=== PATIENT | female | born 1945 | race Caucasian/White ===

== ENCOUNTER → 2017-01-06 | Outpatient (CLI) | payer OTHER | LOC: FIMAGING 08:08 | PROVIDERS: ATTEND Family Medicine ==

== ENCOUNTER 2018-04-05 17:10 | Emergency (ER) | payer OTHER ==
[2018-04-05] MEDS ORDERED: NS 1,000 ML IV ONE (18:20)
--- NOTE | 2018-04-05 18:20 | EDPHY ---
H & P Stated Complaint: Right flank pain for 3 days. Time Seen by Provider: 04/05/18 18:10 HPI/ROS: HPI: This is a 72-year-old female who presents with Chief Complaint: Right flank pain x3 days Location: Right flank Quality: Pain Duration: 3 days Signs and Symptoms: no fever, no nausea, no vomiting, no hematemesis, no blood in stool, no abdominal bloating, no diarrhea, no back pain, no urinary symptoms , no vaginal bleeding/discharge, no indigestion, no chest pain, no shortness of breath Timing: Acute, constant Severity: Mild Context: Patient presents with 3 day history of lower right flank pain that has not moved and nothing makes better or worse. She is described as mild-to- moderate in nature and constant. Patient reports that she is eating and drinking normally and has no fever, nausea, vomiting, back pain, urinary symptoms, diarrhea. Patient has a history of diverticulitis, irritable bowel syndrome. She is followed by GI the [facility]. She recently completed 7 day course of antibiotic am oxacillin as well as Tylenol and ibuprofen approximately 1 week ago. Patient reports her last bowel movement was yesterday. Modifying Factors: See above Comment: ROS: A comprehensive 10 system review of systems is otherwise negative aside from elements mentioned in the history of present illness. MEDICAL/SURGICAL/SOCIAL HISTORY: Medical history: Tooth abc - Mar 2018. Diverticulitis. IBS. Surgical history: Hysterectomy Social history: Nonsmoker. Family history noncontributory. CONSTITUTIONAL: Well-developed, well-nourished, overweight white female, awake and alert, no obvious distress HEENT: Atraumatic and normocephalic, PERRL, EOMI. Nares patent; no rhinorrhea; no nasal mucosal edema. Tympanic membranes clear. Oropharynx clear, no exudate and moist pink mucosa. Airway patent. No lymphadenopathy. No meningismus. Cardiovascular: Normal S1/S2, regular rate, regular rhythm, without murmur rub or gallop. PULMONARY/CHEST: Symmetrical and nontender. Clear to auscultation bilaterally. Good air movement. No accessory muscle usage. ABDOMEN: Soft, nondistended, mild right flank tenderness, no rebound, no guarding, no peritoneal signs, no masses or organomegaly. No CVAT. Bowel sounds heard x4 quadrants. EXTREMITIES: 2/2 pulses, strength 5/5, no deformities, no clubbing, no cyanosis or edema. NEUROLOGICAL: no focal neuro deficits. GCS 15. SKIN: Warm and dry, no erythema. no rash. Good capillary refill. Source: Patient Exam Limitations: No limitations - Personal History Current Tetanus Diphtheria and Acellular Pertussis (TDAP): Yes - Medical/Surgical History Hx Asthma: No Hx Chronic Respiratory Disease: No Hx Diabetes: No Hx Cardiac Disease: No Hx Renal Disease: No Hx Cirrhosis: No Hx Alcoholism: No Hx HIV/AIDS: No Hx Splenectomy or Spleen Trauma: No Other PMH: Tooth abcess - Mar 2018. Diverticulitis. IBS. Hysterectomy - Social History Smoking Status: Never smoked Constitutional: Initial Vital Signs Temperature (C) 36.6 C 04/05/18 17:13 Heart Rate 76 04/05/18 17:13 Respiratory Rate 16 04/05/18 17:13 Blood Pressure 127/72 H 04/05/18 17:13 O2 Sat (%) 96 04/05/18 17:13 O2 Delivery Mode Room Air Allergies/Adverse Reactions: procaine [From Novocain] Allergy (Verified 04/05/18 17:21) Home Medications: Medication Instructions Recorded Ciprofloxacin [Cipro] 500 mg PO BID #14 tab 04/05/18 Claritin 04/05/18 Nexium 04/05/18 metroNIDAZOLE [Flagyl 500 mg (*)] 500 mg PO TID #21 tab 04/05/18 Medical Decision Making - Diagnostics Imaging Results: Imaging Impressions Abdomen CT 04/05/18 18:21 Impression: 1. Mild sigmoid diverticulitis, without evidence of perforation or abscess. Please ensure the patient is current with colonoscopy screening. 2. Moderate stool in the proximal colon, with chronic mild prominence of the cecum, without evidence of obstruction. 3. Stable mildly prominent left perinephric node, with interval stability consistent with a benign etiology. 4. Additional findings, as above. Findings discussed with India Wyman 04/05/2018 at 2016. E:NW/amm ED Course/Re-evaluation: Vital signs reviewed and stable upon arrival. No systemic signs. IV access, laboratory studies, urinalysis, CT abdomen and pelvis scan ordered 1849: Urinalysis negative 1851: Labs reviewed. Mild leukocytosis without left shift. No signs of anemia/ platelet dysfunction/SHARAD/elevated LFTs/electrolyte imbalance/pancreatitis. 2030: Called by radiologist who advised that CT abdomen and pelvis scan shows mild very early diverticulitis on the left side but no perforation or abscess. And moderate constipation on the right side. Patient eating and drinking without difficulty. Given magnesium citrate, MiraLax daily p.r.n. And Cipro and Flagyl. Already is followed by [facility]. This patient was seen under the supervision of my secondary supervising physician. I evaluated care for this patient independently. Discussed this patient with Dr. Rahman who did not see the patient. Differential Diagnosis: Flank pain including but not limited to musculoskeletal causes, kidney stone, pyelonephritis, shingles, and intra-abdominal causes such as diverticulitis and appendicitis. - Data Points Laboratory Results: Laboratory Results 04/05/18 18:30 04/05/18 18:30 04/05/18 04/05/18 04/05/18 18:30 18:30 17:30 WBC 11.47 10^3/uL H 10^3/uL (3.80-9.50) RBC 4.35 10^6/uL 10^6/uL (4.18-5.33) Hgb 13.6 g/dL g/dL (12.6-16.3) Hct 40.1 % % (38.0-47.0) MCV 92.2 fL fL (81.5-99.8) MCH 31.3 pg pg (27.9-34.1) MCHC 33.9 g/dL g/dL (32.4-36.7) RDW 13.2 % % (11.5-15.2) Plt Count 392 10^3/uL 10^3/uL (150-400) MPV 9.9 fL fL (8.7-11.7) Neut % (Auto) 50.8 % % (39.3-74.2) Lymph % (Auto) 39.8 % % (15.0-45.0) [place] % (Auto) 6.6 % % (4.5-13.0) Eos % (Auto) 1.7 % % (0.6-7.6) Baso % (Auto) 0.8 % % (0.3-1.7) Nucleat RBC Rel Count 0.0 % % (0.0-0.2) Absolute Neuts (auto) 5.83 10^3/uL 10^3/uL (1.70-6.50) Absolute Lymphs (auto) 4.57 10^3/uL H 10^3/uL (1.00-3.00) Absolute Monos (auto) 0.76 10^3/uL 10^3/uL (0.30-0.80) Absolute Eos (auto) 0.19 10^3/uL 10^3/uL (0.03-0.40) Absolute Basos (auto) 0.09 10^3/uL 10^3/uL (0.02-0.10) Absolute Nucleated RBC 0.00 10^3/uL 10^3/uL (0-0.01) Immature Gran % 0.3 % % (0.0-1.1) Immature Gran # 0.03 10^3/uL 10^3/uL (0.00-0.10) Sodium 138 mEq/L mEq/L (135-145) Potassium 3.8 mEq/L mEq/L (3.5-5.2) Chloride 109 mEq/L mEq/L (97-110) Carbon Dioxide 24 mEq/l mEq/l (22-31) Anion Gap 5 mEq/L L mEq/L (6-14) BUN 17 mg/dL mg/dL (7-23) Creatinine 0.5 mg/dL L mg/dL (0.6-1.0) Estimated GFR > 60 Glucose 89 mg/dL mg/dL (70-100) Calcium 8.3 mg/dL L mg/dL (8.5-10.4) Total Bilirubin 0.4 mg/dL mg/dL (0.1-1.4) Conjugated Bilirubin 0.3 mg/dL mg/dL (0.0-0.5) Unconjugated Bilirubin 0.1 mg/dL mg/dL (0.0-1.1) AST 48 IU/L H IU/L (14-46) ALT 75 IU/L H IU/L (9-52) Alkaline Phosphatase 115 IU/L IU/L (38-126) Total Protein 6.6 g/dL g/dL (6.3-8.2) Albumin 3.5 g/dL g/dL (3.5-5.0) Lipase 108 IU/L IU/L (23-300) Urine Color YELLOW Urine Appearance CLEAR Urine pH 5.0 (5.0-7.5) Ur Specific [place] 1.012 (1.002-1.030) Urine Protein NEGATIVE (NEGATIVE) Urine Ketones NEGATIVE (NEGATIVE) Urine Blood NEGATIVE (NEGATIVE) Urine Nitrate NEGATIVE (NEGATIVE) Urine Bilirubin NEGATIVE (NEGATIVE) Urine Urobilinogen NEGATIVE EU EU (0.2-1.0) Ur Leukocyte Esterase NEGATIVE (NEGATIVE) Urine Glucose NEGATIVE (NEGATIVE) Medications Given: Discontinued Medications Sodium Chloride (Ns) 1,000 mls @ 0 mls/hr IV ONCE ONE; Wide Open PRN Reason: Protocol Stop: 04/05/18 18:21 Last Admin: 04/05/18 18:39 Dose: 1,000 mls Magnesium Citrate (Magnesium Citrate) 300 ml PO ONCE ONE Stop: 04/05/18 20:35 Last Admin: 04/05/18 20:47 Dose: 1 btl Departure - Departure Disposition: Home, Routine, Self-Care Clinical Impression: Constipation by delayed colonic transit, Diverticulosis of colon (without mention of hemorrhage), Diverticulitis of colon without hemorrhage Condition: Good Instructions: Ciprofloxacin (By mouth), Metronidazole (By mouth), Polyethylene Glycol 3350 (By mouth), Magnesium Citrate (By mouth), Diverticulitis (ED), Constipation (ED), Diverticulosis (ED), Diverticulitis Diet (ED) Additional Instructions: Consume a minimum of 8-10 glasses of water or electrolyte fluid replacement drinks that include Gatorade, Powerade, Pedialyte. Eat a bland diet for the next 48 hours and then slowly advance as tolerated. Take magnesium citrate 150 mL upon arrival home and then another 150 mL tomorrow morning. Take MiraLax daily for the next 3 days and then daily as needed for constipation. Take Cipro and Flagyl as needed for diverticulitis. Return to the Emergency Room if symptoms do not resolve in the next 48-72 hours , you spike a fever > 102 F, or experience intractable abdominal pain/nausea/ vomiting. Referrals: Cecelia Tapia MD [Primary Care Provider] - As per Instructions [facility] [Provider Group] - As per Instructions Prescriptions: Ciprofloxacin [Cipro] 500 mg PO BID #14 tab metroNIDAZOLE [Flagyl 500 mg (*)] 500 mg PO TID #21 tab
[2018-04-05] MEDS ORDERED: IOPAMIDOL (ISOVUE 370) 100 ML BTL IV ONE (18:31)
[2018-04-05 18:39] LABS: PLATELET COUNT 392 10^3/uL (150-400)
[2018-04-05] MEDS ORDERED: MAGNESIUM CITRATE 300 ML BOTTLE PO ONE (20:34)
[2018-04-05 20:51] VITALS: BP 128/85
== END 2018-04-05 20:50 | disposition home or self-care (01) ==
DX: K57.32 Diverticulitis of large intestine without perforation or abscess without bleeding (principal); K59.01 Slow transit constipation; E86.9 Volume depletion, unspecified; K58.9 Irritable bowel syndrome, unspecified; Z87.19 Personal history of other diseases of the digestive system
CPT/HCPCS: 74177; 96360; 99285; Q9967

== ENCOUNTER → 2018-08-23 | Outpatient (CLI) | payer OTHER | LOC: FIMAGING 18:34 ==